=== PATIENT | male | born 1980 | race Caucasian/White ===

== ENCOUNTER 2016-06-10 12:04 | Emergency (ER) | payer MEDICAID ==
[~2016-06-10] VITALS: Wt 60.0 kg
[2016-06-10] MEDS ORDERED: IBUPROFEN 600 MG TAB PO ONE (15:30)
--- NOTE | 2016-06-10 15:43 | RADRPT ---
PROCEDURE: XR Left Wrist with Navicular View CLINICAL INDICATION: Trauma TECHNIQUE: AP, lateral, and oblique views as well as a carpal navicular view were submitted. COMPARISON: None FINDINGS: Osseous structures: There is a comminuted nondisplaced fracture involving the distal left radius res ulting in moderate dorsal angulation of the distal articular surface. The remaining osseous element s appear intact. Joint spaces: are well maintained with no significant erosions or spurring identified. Soft tissues: appear unremarkable. IMPRESSION: 1. Comminuted fracture involving distal left radius with moderate dorsal angulation of the distal a rticular surface. 2. Otherwise, unremarkable left wrist series with navicular view. Physician Rufus Date Time Electronically viewed and signed by Physician Rufus on 06/10/2016 15:43 /
[2016-06-10] MEDS ORDERED: IBUP-1542 PO (15:48)
--- NOTE | 2016-06-10 16:00 | ERD ---
ER Documentation Chief Complaint Date/Time DATE: 06/10/16 TIME: 15:58 Chief Complaint LEFT WRIST PAIN FROM A FALL. NO DEFORMTY NOTED. NO BRUISING HPI This 35-year-old male complains of left wrist pain and swelling from a fall yesterday onto his outstretched hand. He denies restricted range of motion weakness or bleeding lacerations. ROS All systems reviewed and are negative except as per history of present illness. Medications Home Meds Active Scripts Ibuprofen* (Motrin*) 600 Mg Tab, 600 MG PO Q6, #20 TAB Prov:HUI BEASELY MD 06/10/16 PMhx/Soc Medical and Surgical Hx: pt denies Medical Hx, pt denies Surgical Hx Physical Exam Vitals Vital Signs Date Time Temp Pulse Resp B/P Pulse Ox O2 Delivery O2 Flow Rate FiO2 06/10/16 12:13 98.8 77 20 132/72 98 Physical Exam Const: [] Alert, [id number] Head: Atraumatic Eyes: Normal Conjunctiva ENT: Normal External Ears, Nose and Mouth. Neck: Full range of motion..~ No meningismus. Resp: Clear to auscultation bilaterally Cardio: Regular rate and rhythm, no murmurs Abd: Soft, non tender, non distended. Normal bowel sounds Skin: No petechiae or rashes Back: No midline or flank tenderness Ext: No cyanosis, or edema. Some tenderness and swelling on the left wrist and the distal radius area. There is no restricted range of motion, weakness, erythema, warmth or bleeding. Neur: Awake and alert Psych: Normal Mood and Affect Results 24 hrs Current Medications Medications (Trade) Dose Ordered Sig/Alex Route PRN Reason Start Time Stop Time Status Last Admin Dose Admin Ibuprofen (Motrin) 600 mg ONCE ONCE PO 06/10/16 15:30 06/10/16 15:31 DC Procedures/MDM X-ray Wrist 3V Interpreted by me: Scaphoid: [Normal] Bones: There is a impacted slightly angulated distal radius fracture which is slightly comminuted. Joints: [No dislocation] Foreign body: [None]. Impression-comminuted left distal radius fracture. Patient was placed in a left short arm splint. Splint Assessment: Neurovascularly intact post splint placement with good fit. Patient presents with a closed left wrist fracture. We discharged home with instruction to follow-up with an orthopedist in the next week but is no signs of infection or neurovascular or tendon or neurologic deficit. Patient will be referred to local orthopedic services with private and public for further evaluation. Patient should return for fevers, new worsening symptoms. Departure Diagnosis: Primary Impression: Wrist fracture, left Encounter type: initial encounter Fracture type: closed Qualified Code: S62.102A - Wrist fracture, left, closed, initial encounter Condition: Stable Patient Instructions: Fracture, Wrist [General] Referrals: DEBBY TALAVERA MDIN [facility] URGENT CARE/SPECIALTIES Request to Evaluate for Specialty Care (Use this form only for uninsured patients) Referring Provider:HUI BEASLEY MD Patient Date of :1980 Specialty and Clinical reason(s) for request: Left distal radius fracture Patients Medications: Motrin Patients Pertinent Tests: X-ray Hospital Contact: [address] [place] [address] List of [facility] Facilities with Urgent Care Clinics [address] [address] 8:00am-12:00am (Midnight)(7 days a week) LISA Cage [facility] [address] [address] 7:30am-11:00pm (7 days a week) Lynette Arrieta [facility] [address] [facility]. [place], [place] [address] 7:30am-12:00am (Midnight) 7:30am-8:00pm (Friday,Friday & Holidays) Manish Mann [facility] [address] [place], [place] [address] 8:00am-11:00pm (7 days a week) Buck Melara [facility] [address] [place], [place] [address] 8:00am-4:30pm (Friday-Friday) 8:30am-5:00pm (Friday) [facility] [address] [place], [place] [address] 8:00am-7:30pm (Friday-Friday) 8:00am-4:30pm (Friday) Clinical Services are not guaranteed as a result of this request. They are rendered based on medical necessity and are at the sole discretion of [facility]'s staff. The uninsured patient should bring the following ID documents: 1-Current [place] [employer]'s License or government issued ID (such as [facility] Consular ID or passport) 2-Social Security Card (if they have) 3-Proof of address 4-Proof of income Additional Instructions: Va al mendoza doctor/ specialista para mas evaluacon en el proximo semana. posiblemente necesita autorizado de mendoza doctor primario para specialista. Regresa para fiebre, o mas o nueva simptomas. HUI BEASLEY MD Jun 10, 2016 16:00
== END 2016-06-10 17:46 | disposition home or self-care (01) ==
LOC: FTE 12:04
DX: S62.102A Fracture of unspecified carpal bone, left wrist, initial encounter for closed fracture (principal); W19.XXXA Unspecified fall, initial encounter; Y92.9 Unspecified place or not applicable
CPT/HCPCS: 29125; 73110; Z7502; Z7610